=== PATIENT | female | born 1970 | race Caucasian/White ===

== ENCOUNTER 2016-12-17 15:33 | Emergency (ER) | payer OTHER ==
[~2016-12-17] VITALS: Ht 175.3 cm; Wt 74.5 kg
[~2016-12-17 15:33] MED LIST: BACTRIM,SEPT1 TABLET PO; BENADRYL ALLERG25 MG PO; BIOTIN1000 MICRO PO; CIPROFLOXACIN500 M1 PO; DILAUDID2 MG PO; FLEXERIL5 MG PO; FLOMAX0.4 MG PO; FLONASE ALLERG9.9 ML BOTH NARES; FLONASE16 GM NS; GLUCOSAMINE CH1 EAC2 PO; HYDROCODON-ACE1 EAC8 PO; MIRALAX255 GM PO; MOTRIN800 MG PO; MULTIPLE VITAM1 EACH PO; NORCO 5/3251 TABLET PO; SINGULAIR10 MG PO; SUPER B COMP1 TABLET PO; TORADOL10 MG PO; ULTRAM50 MG PO; VITAMIN D31000 UNIT PO; VITAMIN E100 UNIT PO; VITAMIN E400 UNIT PO; ZINC10 MG PO; ZINC30 M1 PO; ZINC50 M1 PO; ZOFRAN ODT4 MG PO
[2016-12-17 17:18] LABS: HEMATOCRIT 43.9 % (36.0-46.0); MCH 29.8 PG (29.0-34.0); MCHC 33.5 G/DL (30.0-36.0); MCV 88.9 FL (83-99); MEAN PLAT.VOLUME 9.4 uM^3 (9.5-12.4); PLATELET COUNT 270 K/uL (156-360); RBC DIS.WIDTH-CV 12.2 % (11.8-14.6); RBC DIS.WIDTH-SD 39.4 % (39-53); RED BLOOD COUNT 4.94 M/uL (3.80-5.20); WHITE BLOOD COUNT 9.7 K/uL (4.1-10.2)
[2016-12-17 17:20] LABS: CHLORIDE 106 mEq/L (99-109); POTASSIUM 3.7 mEq/L (3.7-5.4); SODIUM 144 mEq/L (136-147)
[2016-12-17 17:22] LABS: GLUCOSE 106 mg/dL (70-99)
[2016-12-17 17:23] LABS: ANION GAP 14 MEQ/L (2-14)
[2016-12-17 17:24] LABS: TOTAL BILIRUBIN 0.6 mg/dL (0.0-1.0)
[2016-12-17 17:25] LABS: ALKALINE PHOSPHATASE 60 IU/L (3-129)
[2016-12-17 17:26] LABS: GFR ESTIMATE (CALCULATED) > 59 mL/min/
[2016-12-17 17:27] LABS: UREA NITROGEN (BUN) 17 mg/dL (9-23)
[2016-12-17] MEDS ORDERED: MECLIZINE HCL25 MG PO (17:55)
[2016-12-17 19:03] LABS: ADD MIUA? YES; BILIRUBIN NEGATIVE; BLOOD NEGATIVE; COLOR YELLOW ((YELLOW)); GLUCOSE (STRIP) NEGATIVE; KETONES 80; LEUKOCYTES NEGATIVE; NITRITE NEGATIVE; PROTEIN (STRIP) 30; SPECIFIC GRAVITY 1.021 (1.000-1.030); UROBILINOGEN 0.2 MG/DL (0.2-1.0)
[2016-12-17 19:54] LABS: BACTERIA 1+ /HPF; EPITHELIAL CELLS 1+ /HPF; MUCUS 3+ /LPF; RED BLOOD CELLS 0-5 /HPF (0-5); UCUL ADDED? NO; WHITE BLOOD CELLS 0-5 /HPF (0-5)
[2016-12-17 22:43] VITALS: BP 154/93
== END 2016-12-17 22:47 | disposition home or self-care (01) ==
LOC: EME 15:33
PROVIDERS: Emergency Medicine
DX: R42 Dizziness and giddiness (principal); R11.2 Nausea with vomiting, unspecified; R68.83 Chills (without fever)
CPT/HCPCS: 70450; 80053; 81003; 85027; 99281; 99284; J1630; J2405; J7030